=== PATIENT | male | born 1995 | race Caucasian/White ===

== ENCOUNTER 2020-05-17 08:02 | Observation (INO) | payer OTHER ==
[~2020-05-17] VITALS: Ht 182.9 cm; Wt 90.9 kg
[2020-05-17] MEDS ORDERED: NS 1,000 ML IV ONE (08:30)
[2020-05-17 08:45] LABS: BASO % 0.3 % (0.0-1.0); EOS # 0.7 10^3/uL (0.0-0.5); EOS % 6.7 % (0.0-3.0); HEMATOCRIT 41.7 % (42.0-52.0); HEMOGLOBIN 14.5 g/dl (13.5-17.5); LYMPH # 2.5 10^3/uL (1.5-5.0); LYMPH % 25.1 % (24.0-44.0); MEAN CORPUSCULAR HEMOGLOBIN 31.8 pg (27.0-33.0); MEAN CORPUSCULAR HGB CONC 34.8 g/dl (32.0-36.5); MEAN CORPUSCULAR VOLUME 91.4 fl (80.0-96.0); MONO # 0.9 10^3/uL (0.0-0.8); MONO % 9.3 % (0.0-5.0); NEUTROPHILS # 5.7 10^3/uL (1.5-8.5); NEUTROPHILS % 58.4 % (36.0-66.0); PLATELET COUNT, AUTOMATED 215 10^3/uL (150-450); RED BLOOD COUNT 4.56 10^6/uL (4.30-6.10); WHITE BLOOD COUNT 9.8 10^3/uL (4.0-10.0)
[2020-05-17 08:48] LABS: VENOUS BASE EXCESS -1.6 (-2.0-2.0); VENOUS O2 SATURATION 98.5 % (60.0-80.0); VENOUS PARTIAL PRESSURE CO2 43.3 mmHg (38.0-50.0); VENOUS PARTIAL PRESSURE O2 129.2 mmHg (30.0-50.0); VENOUS PH 7.361 UNITS (7.330-7.430); VENOUS STANDARD HCO3 23.2 MEQ/L; VENOUS TOTAL CO2 25.3 MEQ/L (24.0-28.0)
--- NOTE | 2020-05-17 09:07 | REPVR ---
PROCEDURE INFORMATION: Exam: XR Chest, 1 View Exam date and time: 05/17/2020 8:44 AM Age: 24 years old Clinical indication: Cough and dyspnea; Additional info: Dyspnea/cough TECHNIQUE: Imaging protocol: XR of the chest Views: 1 view. COMPARISON: No relevant prior studies available. FINDINGS: Lungs: Hyperinflation, without acute airspace disease. Pleural space: No pleural effusion Heart/Mediastinum: No cardiomegaly. Bones/joints: Unremarkable. IMPRESSION: No acute airspace or pleural disease. Electronically signed by: Jovon Perez On 05/17/2020 09:06:55 AM
[2020-05-17 09:17] LABS: ALBUMIN 3.8 GM/DL (3.2-5.2); ALT/SGPT 34 U/L (12-78); BILIRUBIN,DIRECT 0.2 MG/DL (0.0-0.2); BILIRUBIN,TOTAL 0.6 MG/DL (0.2-1.0); BLOOD UREA NITROGEN 13 MG/DL (7-18); CALCIUM LEVEL 8.7 MG/DL (8.5-10.1); CARBON DIOXIDE LEVEL 25 MEQ/L (21-32); CHLORIDE LEVEL 106 MEQ/L (98-107); CREATININE FOR GFR 0.98 MG/DL (0.70-1.30); GLOMERULAR FILTRATION RATE > 60.0 (>60); GLUCOSE, FASTING 89 MG/DL (70-100); POTASSIUM SERUM 3.7 MEQ/L (3.5-5.1); SODIUM LEVEL 140 MEQ/L (136-145); TOTAL PROTEIN 7.1 GM/DL (6.4-8.2)
[2020-05-17] MEDS ORDERED: ISOVUE-370 76% 100ML VIAL As Ordered ONE (10:36)
--- NOTE | 2020-05-17 11:21 | REPVR ---
PROCEDURE INFORMATION: Exam: CT Angiography Chest With Contrast Exam date and time: 05/17/2020 10:42 AM Age: 24 years old Clinical indication: Shortness of breath; Additional info: Hypoxia TECHNIQUE: Imaging protocol: Computed tomographic angiography of the chest with intravenous contrast. 3D rendering (Not supervised by radiologist): MIP and/or 3D reconstructed images were created by the technologist. Radiation optimization: All CT scans at this facility use at least one of these dose optimization techniques: automated exposure control; mA and/or kV adjustment per patient size (includes targeted exams where dose is matched to clinical indication); or iterative reconstruction. Contrast material: ISOVUE 370; Contrast volume: 75 ml; Contrast route: INTRAVENOUS (IV); COMPARISON: CR PORTABLE CHEST X-RAY 05/17/2020 8:36 AM FINDINGS: Pulmonary arteries: No pulmonary embolus is identified. Aorta: The thoracic aorta is nonaneurysmal. Lungs: There is a small focus of patchy airspace opacity medially in the lingula. The lungs are otherwise clear. Pleural space: Unremarkable. No pneumothorax. No pleural effusion. Heart: Unremarkable. No cardiomegaly. No pericardial effusion. Lymph nodes: Unremarkable. No enlarged lymph nodes. Bones/joints: Unremarkable. No acute fracture. Soft tissues: Unremarkable. IMPRESSION: 1. No pulmonary embolus identified. 2. Small focus of patchy airspace opacity medially in the lingula, could reflect pneumonia. Electronically signed by: Jean Pierre Espinosa On 05/17/2020 11:21:03 AM
[2020-05-17] MEDS ORDERED: dexameTHASONE 20MG/5ML VIAL (J1100 PER 1MG) IV ONE (12:00)
[2020-05-17] MEDS: COMBIVENT RESPIMAT 100-20MCG INHALER 4GM INH SCH ×3 (12:03→13:09)
[2020-05-17] MEDS ORDERED: VITA500C24 PO (13:11)
[2020-05-17] MEDS ORDERED: ASCO500T PO (13:12)
[2020-05-17] MEDS ORDERED: IPRATROPIUM 0.5MG/ALBUTEROL 2.5MG INH SOL UD 3ML (DUONEB) NEB PRN (14:15)
[2020-05-17] MEDS ORDERED: MONT10TA4 PO (14:20)
[2020-05-17] MEDS ORDERED: CETI10TA PO (14:20)
[2020-05-17] MEDS ORDERED: PROAAER10 INH (14:20)
[2020-05-17] MEDS ORDERED: PRED5PAK PO (14:20)
[2020-05-17] MEDS ORDERED: FLUT11IN INH (14:20)
[2020-05-17] MEDS ORDERED: MOXI400T11 PO (14:20)
[2020-05-17] MEDS ORDERED: CETIRIZINE (ZyrTEC) 10 MG TAB PO ONE (14:45)
[2020-05-17] MEDS ORDERED: NICOTINE POLACRILEX 2 MG GUM PO PRN (14:45)
--- NOTE | 2020-05-17 14:58 | HPEPDOC ---
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 Patient denies any fever or chills at home and presented to the emergency room for evaluation. He denies any headache, confusion, nausea, v omiting, diarrhea, abdominal pain. In the emergency room. CT chest showed possible small patchy opacity in the lingula, cannot rule out pneumonia. Respiratory panel was negative for covert 19 positive for rhinovirus. Patient was found to be saturating 88% on room air with rhonchorous breath sounds b ilaterally and was given intravenous Decadron and Combivent with significant improvement. Patient has been using Mucinex AND NyQuil without much relief. He has noticed shortness of breath in the past during this time of year, but has never had pulmonary function testing done as outpatient. Hospitalist service was asked to admit the patient for reactive airway disease, rule out asthma and treatment for possible early community-acquired pneumonia in the lingula. PAST MEDICAL HISTORY: None PAST SURGICAL HISTORY: None SOCIAL HISTORY: Actively smokes a pack of cigarettes every 36 hours since the age of 15, rings, 1 or 2 beers a week. Denies recreational drug abuse, active duty of [employer]. Multiple tattoos done professionally, bilateral upper extremities FAMILY HISTORY: Mother alive, age 48. No medical problems. Father alive age 54. No medical problems. Sister, age 27. No medical problems ALLERGIES: Please see below. REVIEW OF SYSTEMS: 12 point systems review negative aside from positive findings in history of presenting illness HOME MEDICATIONS: Please see below. PHYSICAL EXAMINATION: VITAL SIGNS: See below GENERAL APPEARANCE: Awake, alert, oriented 3, answering questions appropriately. No conversational dyspnea. No type, but positioning. No use of accessory respiratory muscles HEENT: Extraocular muscles intact. Moist mucous membranes. No cervical lymphaden opathy, no JVD, no thyromegaly. Pupils equally round, reactive to light and accommodation. CARDIOVASCULAR: S1, S2, sinus rhythm, regular rate, rhythm LUNGS: Diminished breath sounds, bilateral rhonchi ABDOMEN: Bowel sounds 4 quadrants, soft, nontender, nondistended. No hepatosplenomegaly EXTREMITIES: No cyanosis, clubbing or pitting edema LABORATORY DATA: See below. IMAGING 05/17/2020. Chest x-ray no acute airspace or pleural disease 05/17/2020 CT chest with contrast Small focus of patchy airspace opacity medially in the lingula could reflect pneumonia, no pulmonary embolism. MICROBIOLOGY: Please see below. 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 Patient denies any fever or chills at home and presented to the emergency room for evaluation. He denies any headache, confusion, nausea, vomiting, diarrhea, abdominal pain. In the emergency room. CT chest showed possible small patchy opacity in the lingula, cannot rule out pneumonia. Respiratory panel was negative for covert 19 positive for rhinovirus. Patient was found to be saturating 88% on room air with rhonchorous breath sounds bilaterally and was given intravenous Decadron and Combivent with significant improvement. Patient has been using Mucinex AND NyQuil without much relief. He has noticed shortness of breath in the past during this time of year, but has never had pulmonary function testing done as outpatient. Hospitalist service was asked to admit the patient for reactive airway disease, rule out asthma and treatment for possible early community-acquired pneumonia in the lingula. Acute reactive airway disease , rule out asthma Acute hypoxia Active tobacco abuse Acute rhinovirus upper respiratory infection Community acquired pneumonia in the lingula PLAN: Patient has been admitted for observation for treatment of acute reactive airway disease with intravenous steroids, Solu-Medrol 60 mg IV every 6 hourly, albuterol and Atrovent nebulizer every 4 hourly, every 2 hourly as needed for wheezing, Avelox 400 mg daily for total of 7 days, Flovent 2 puffs inhaled twice a day, montelukast 10 mg daily, Zyrtec 10 mg daily, when necessary Robitussin every 4 hourly for cough. Patient has been counseled against tobacco cessation and has been given nicotine patch and nicotine gum as needed for discomfort. He has been advised to continue with judicious handwashing to prevent spread of acute rhinovirus. To further evaluate possible pneumonia in the lingula. Blood culture, sputum culture, urine Legionella, urine streptococcal antigen have been ordered. Since the patient is otherwise medically stable, he may be discharged home in the morning. If oxygen saturation remains at 88% and higher and no other acute issues overnight. Patient has been advised to have his primary care physician refer him for pulmonary function [facility] at [facility] as well as a referral to locker operator Dr. Juarez in [place] to assess possible triggers for his reactive airway disease. Respiratory therapist has been consulted to teach the patient had a use his inhalers. DVT prophylaxis with Lovenox subcutaneous daily. He is a full code. Vital Signs Vital Signs Date Time Temp Pulse Resp B/P (MAP) Pulse Ox O2 Delivery O2 Flow Rate FiO2 05/17/20 14:01 64 95 Room Air 05/17/20 14:00 117/55 (75) 05/17/20 12:01 18 05/17/20 10:53 2.0 05/17/20 08:34 97.8 Laboratory Data Labs 24H Laboratory Tests 2 05/17/20 08:26: Immature Granulocyte % (Auto) 0.2, Neutrophils (%) (Auto) 58.4, Lymphocytes (%) (Auto) 25.1, Monocytes (%) (Auto) 9.3H, Eosinophils (%) (Auto) 6.7H, Basophils (%) (Auto) 0.3, Neutrophils # (Auto) 5.7, Lymphocytes # (Auto) 2.5, Monocytes # (Auto) 0.9H, Eosinophils # (Auto) 0.7H, Basophils # (Auto) 0.0, Nucleated Red B lood Cells % (auto) 0.0, Blood Gas Bicarbonate Standard 23.2, Venous Blood pH 7.361, Venous Blood Partial Pressure CO2 43.3, Venous Blood Partial Pressure O2 129.2H, Venous Blood Total Carbon Dioxide 25.3, Venous Blood HCO3 24.0, Venous Blood Oxygen Saturation 98.5H, Venous Blood Base Excess -1.6, Anion Gap 9, Glomerular Filtration Rate > 60.0, Lactic Acid Level 1.3, Calcium Level 8.7, Total Bilirubin 0.6, Direct Bilirubin 0.2, Aspartate Amino Transf (AST/SGOT) 19, Alanine Aminotransferase (ALT/SGPT) 34, Alkaline Phosphatase 53, Total Protein 7.1, Albumin 3.8, Albumin/Globulin Ratio 1.2, Thyroid Stimulating Hormone (TSH) 1.280 CBC/BMP Laboratory Tests 05/17/20 08:26 Microbiology Microbiology 05/17/20 Blood Culture, Received Pending 05/17/20 Gram Stain - Final, Resulted 05/17/20 Sputum Culture, Resulted Pending 05/17/20 Respiratory Virus Panel (PCR) ([facility]) - Final, Complete Human Rhinovirus/Enterovirus 05/17/20 Blood Culture, Received Pending Home Medications Scheduled Ascorbic Acid (Ascorbic Acid) 500 Mg Tablet, 500 MG PO DAILY Cetirizine HCl (Cetirizine HCl) 10 Mg Tablet, 10 MG PO DAILY Fluticasone Propionate (Flovent Hfa) 110 Mcg/Act Aer.w.adap, 2 PUFF INH BID Fluticasone Propionate (Flovent Hfa) 110 Mcg/Act Aer.w.adap, 2 PUFF INH BID Montelukast Sodium (Montelukast Sodium) 10 Mg Tablet, 10 MG PO QAM Moxifloxacin HCl (Moxifloxacin HCl) 400 Mg Tablet, 400 MG PO DAILY@06 Prednisone (Prednisone) 5 Mg Tab.ds.pk, 5 MG PO ASDIRECTED 6 day dose pack taper Scheduled PRN Albuterol Sulfate (Proair Hfa) 8.5 Gm Hfa.aer.ad, 2 PUFF INH Q4-6HP PRN for wheezing Allergies Coded Allergies: No Known Allergies (Unverified , 05/17/20) A-FIB/CHADSVASC A-FIB History Current/History of A-Fib/PAF?: No Current PO Anticoag Therapy: No Age/Risk Factor Scoring CHADSVASC: CHADSVASC Response (Comments) Value Age Risk Factor Age < 65 years old 0 Gender Risk Factor Male 0 Hx of CHF No 0 Hx of HTN No 0 Hx of Stroke/TIA/or VTE No 0 Hx of Diabetes No 0 Hx of Vascular Disease No 0 Total 0 Treatment Treatment ordered: NONE LUCIA RODRIGUEZ MD May 17, 2020 14:58
[2020-05-17 14:59] VITALS: BP 144/75
[2020-05-17] MEDS ORDERED: MONTELUKAST 10 MG TAB PO ONE (15:00)
[2020-05-17] MEDS ORDERED: guaiFENesin DM LIQ 10ML UD PO PRN (15:15)
[2020-05-17] MEDS: FLUTICASONE HFA 110 MCG 12 GM INHALER (FLOVENT) INH SCH ×2 (15:30→20:15)
[2020-05-17] MEDS ORDERED: MOXIFLOXACIN HCL 400 MG in IV 1 EA IV ONE (16:00)
[2020-05-17] MEDS: IPRATROPIUM 0.5MG/ALBUTEROL 2.5MG INH SOL UD 3ML (DUONEB) NEB SCH ×3 (16:00→22:58)
[2020-05-17] MEDS ORDERED: NICOTINE 7 MG/24 HR TRANSDERMAL TD ONE (16:00)
[2020-05-17 17:43] VITALS: BP 114/78
[2020-05-17] MEDS: methylPREDNISolone 125MG 2ML VIAL IV SCH ×2 (18:02→23:13)
[2020-05-17 22:00] VITALS: BP 117/76
[2020-05-18] MEDS: IPRATROPIUM 0.5MG/ALBUTEROL 2.5MG INH SOL UD 3ML (DUONEB) NEB SCH ×2 (02:55→07:39)
[2020-05-18] MEDS: methylPREDNISolone 125MG 2ML VIAL IV SCH (05:46)
[2020-05-18 06:00] VITALS: BP 101/51
[2020-05-18] MEDS ORDERED: MOXIFLOXACIN 400 MG TAB PO SCH (06:00)
[2020-05-18] MEDS: FLUTICASONE HFA 110 MCG 12 GM INHALER (FLOVENT) INH SCH (07:39)
[2020-05-18] MEDS ORDERED: predniSONE 20 MG TAB PO ONE (08:00)
[2020-05-18] MEDS ORDERED: NICOTINE 7 MG/24 HR TRANSDERMAL TD SCH (09:00)
[2020-05-18] MEDS ORDERED: MONTELUKAST 10 MG TAB PO SCH (09:00)
[2020-05-18] MEDS ORDERED: CETIRIZINE (ZyrTEC) 10 MG TAB PO SCH (09:00)
--- NOTE | 2020-05-18 10:19 | DS.PDOC ---
Discharge Summary General Date of Admission May 17, 2020 at 14:11 Date of Discharge may 18, 2020 Discharge Summary DISCHARGE DIAGNOSES: Acute reactive airway disease , rule out asthma Acute hypoxia Active tobacco abuse Acute rhinovirus upper respiratory infection Community acquired pneumonia in the lingula COMPLICATIONS/CHIEF COMPLAINT: Hypoxia, Rhinovirus Infection. 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 Patient denies any fever or chills at home and presented to the emergency room for evaluation. He denies any headache, confusion, nausea, vomiting, diarrhea, abdominal pain. In the emergency room. CT chest showed possible small patchy opacity in the lingula, cannot rule out pneumonia. Respiratory panel was negative for covert 19 positive for rhinovirus. Patient was found to be saturating 88% on room air with rhonchorous breath sounds bilaterally and was given intravenous Decadron and Combivent with significant improvement. Patient has been using Mucinex AND NyQuil without much relief. He has noticed shortness of breath in the past during this time of year, but has never had pulmonary function testing done as outpatient. Hospitalist service was asked to admit the patient for reactive airway disease, rule out asthma and treatment for possible early community-acquired pneumonia in the lingula. HOSPITAL COURSE: Patient was admitted for observation for treatment of acute reactive airway disease with intravenous steroids, Solu-Medrol 60 mg IV every 6 hourly, albuterol and Atrovent nebulizer every 4 hourly, every 2 hourly as needed for wheezing, Avelox 400 mg daily for total of 7 days, Flovent 2 puffs inhaled twice a day, montelukast 10 mg daily, Zyrtec 10 mg daily, when necessary Robitussin every 4 hourly for cough. Patient has been counseled against tobacco cessation and has been given nicotine patch and nicotine gum as needed for discomfort. He has been advised to continue with judicious handwashing to prevent spread of acute rhinovirus. To further evaluate possible pneumonia in the lingula. Blood culture, sputum culture, urine Legionella, urine streptococcal antigen have been ordered. Since the patient is otherwise medically stable, he is discharged home today.O2 sat remained at 94-98% on RA with ambulation, and did not require supplemental oxygen overnight. Respiratory therapist has been consulted to teach the patient had a use his inhalers. DVT prophylaxis with Lovenox subcutaneous dailywas provided during the hospital stay. DISCHARGE PHYSICAL EXAMINATION: VITAL SIGNS: See below GENERAL APPEARANCE: Awake, alert, oriented 3, answering questions appropriately. No conversational dyspnea. No type, but positioning. No use of accessory respiratory muscles HEENT: Extraocular muscles intact. Moist mucous membranes. No cervical lymp hadenopathy, no JVD, no thyromegaly. Pupils equally round, reactive to light and accommodation. CARDIOVASCULAR: S1, S2, sinus rhythm, regular rate, rhythm LUNGS: improved air entry. still with slight rhonchi no crackles ABDOMEN: Bowel sounds 4 quadrants, soft, nontender, nondistended. No hepatosplenomegaly EXTREMITIES: No cyanosis, clubbing or pitting edema IMAGING STUDIES: 05/17/2020. Chest x-ray no acute airspace or pleural disease 05/17/2020 CT chest with contrast Small focus of patchy airspace opacity medially in the lingula could reflect pneumonia, no pulmonary embolism. DISCHARGE MEDICATIONS: Please see below. ALLERGIES: Please see below. LABORATORY DATA: Please see below. ITEMS TO FOLLOWUP ON ON OUTPATIENT: 1- Patient has been advised to have his primary care physician refer him for pulmonary function testing at [facility] as well as a referral to delivery table feeder Dr. Juarez in [place] to assess possible triggers for his reactive airway disease. 2-Asthma action plan was discussed with the patient. Albuterol rescue inhaler to be with him at all times, another in his home. 3-Quit Smoking,use PRN nicotine gum 4-complete 7 days of antibiotics, prednisone taper. 5-Document daytime and nighttime symptoms during the week to provide outpt ph ysician data to determine appropriate maintenance therapy. 6-Careful handwashing for rhinovirus infection. DISCHARGE CONDITION: Stable TIME SPENT ON DISCHARGE: minutes. Vital Signs/I&Os Vital Signs Date Time Temp Pulse Resp B/P (MAP) Pulse Ox O2 Delivery O2 Flow Rate FiO2 05/18/20 06:00 97.3 99 18 101/51 (68) 94 Room Air 05/17/20 17:43 0.0 I&O- Last 24 Hours up to 6 AM 05/18/20 06:00 Intake Total 2680 ml Output Total 0 ml Balance 2680 ml Microbiology Microbiology 05/17/20 Blood Culture - Preliminary, Resulted No growth after 24 hours . All specim... 05/17/20 Gram Stain - Final, Resulted 05/17/20 Sputum Culture, Resulted Pending 05/17/20 Respiratory Virus Panel (PCR) ([facility]) - Final, Complete Human Rhinovirus/Enterovirus 05/17/20 Blood Culture - Preliminary, Resulted No growth after 24 hours . All specim... Discharge Medications Scheduled Ascorbic Acid (Ascorbic Acid) 500 Mg Tablet, 500 MG PO DAILY, (Reported) Cetirizine HCl (Cetirizine HCl) 10 Mg Tablet, 10 MG PO DAILY Fluticasone Propionate (Flovent Hfa) 110 Mcg/Act Aer.w.adap, 2 PUFF INH BID Fluticasone Propionate (Flovent Hfa) 110 Mcg/Act Aer.w.adap, 2 PUFF INH BID Montelukast Sodium (Montelukast Sodium) 10 Mg Tablet, 10 MG PO QAM Moxifloxacin HCl (Moxifloxacin HCl) 400 Mg Tablet, 400 MG PO DAILY@06 Prednisone (Prednisone) 5 Mg Tab.ds.pk, 5 MG PO ASDIRECTED 6 day dose pack taper Scheduled PRN Albuterol Sulfate (Proair Hfa) 8.5 Gm Hfa.aer.ad, 2 PUFF INH Q4-6HP PRN for wheezing Allergies Coded Allergies: No Known Allergies (Unverified , 05/17/20) LUCIA RODRIGUEZ MD May 18, 2020 10:12
[2020-05-18] MEDS ORDERED: NICO2GUM PO (10:20)
== END 2020-05-18 10:27 | disposition home or self-care (01) ==
LOC: EDBD 08:02 → M ED 08:02 → M ED INP 14:11 → ENRESERV 14:16 → M MSPAV 14:56
PROVIDERS: ADMIT General Practice; ATTEND General Practice
DX: J45.909 Unspecified asthma, uncomplicated (principal); R09.02 Hypoxemia; F17.218 Nicotine dependence, cigarettes, with other nicotine-induced disorders; J06.9 Acute upper respiratory infection, unspecified; B97.89 Other viral agents as the cause of diseases classified elsewhere; J18.9 Pneumonia, unspecified organism
CPT/HCPCS: 71045; 71275; 80048; 80076; 82803; 83605; 84443; 85025; 87040; 87070; 87205; 87486; 87581; 87633; 87798; 93041; 94640; 94760; 96361; 96365; 96375; 96376; 99285; J1100; J2280; J2930; Q9967